=== PATIENT | male | born 1955 | race Caucasian/White ===

== ENCOUNTER 2017-04-08 12:33 | Day surgery (SDC) | payer BC ==
[~2017-04-08] VITALS: Ht 167.6 cm; Wt 85.0 kg
[~2017-04-08 12:33] MED LIST: CYCL5TAB PO; NAPR-260 PO
[2017-04-08 13:37] VITALS: Ht 167.6 cm; Wt 85.0 kg
[2017-04-08] MEDS ORDERED: AMLO1CAP15 PO (13:43)
[2017-04-08 14:17] VITALS: BP 147/87; PULSE 64; RESP 18
[2017-04-08] MEDS ORDERED: MIDAZOLAM 1 MG/ML 2 ML INJ ONE ×3 (15:04)
[2017-04-08] MEDS ORDERED: FENTAnyl 50 MCG/ML VIAL ONE (15:04)
--- NOTE | 2017-04-08 15:05 | OPPN ---
Date/Time of Note Date/Time of Note DATE: 04/08/17 TIME: 15:02 Proc Note GI Procedure Date 04/08/17 Pre-procedure Diagnosis * Colorectal cancer screening Post-procedure Diagnosis Impression: * Moderate universal diverticulosis * Moderate-sized internal hemorrhoids * Otherwise normal colonoscopy to cecum Plan: * Follow-up as previously scheduled * High-fiber diet * Annual Hemoccult stool testing * Screening colonoscopy in 10 years . Procedure Performed: Colonoscopy Surgeon RADHA CARTER MD Radio Station Engineer none Tourniquet Time none EBL none Transfusion required none Grafts/Implants none Tubes/Drains none Complication(s) none Pt Condition post procedure: stable Disposition: home Indications: screening/surveillance Procedure Description After informed consent, with the patient/relatives understanding the procedure, its indications and potential risks and complications, including but not limited to: Allergic reaction, bleeding, perforation, infection, and after all pertinent questions were answered to the patient's satisfaction, the patient/ relatives signed the witnessed informed consent. Following this, premedication was administered slowly IV push under careful cardiovascular and respiratory monitoring with pulse OXIMETRY, automatic blood pressure, and air sampling and monitoring. Once the sedative effect was achieved, the patient was placed in the left lateral decubitus position, digital rectal examination was performed. The colonoscope was then introduced and advanced under visual control throughout all segments of the colon including: the rectum, sigmoid, descending colon, splenic flexure, transverse colon, hepatic flexure, ascending colon and finally reaching the cecum which was clearly identified by transillumination, finger indentation and the ileocecal valve. Careful examination of the mucosa of the lower gastrointestinal tract both on insertion as well as withdrawal of the instrument disclosed the following findings: PREPARATION QUALITY: [Adequate], RECTAL EXAM: The anorectal area was visualized examined and digital rectal examination performed with the following findings: No evidence of perirectal disease, no masses. COLONIC MUCOSA: The mucosa of all segments of the colon was carefully examined and showed the following findings: There is moderate diverticulosis throughout the colon. Otherwise the examined mucosa appears within normal limits. There is no evidence of inflammatory changes, polyps or other neoplasms, vascular malformation, or any other abnormality. The instrument was then withdrawn, the patient tolerated the procedure well and was transferred out of the Endoscopy Suite awake and in good condition to continue recovery under observation. Copies To: CC: RADHA CARTER MD, MORDO MD Apr 08, 2017 15:05
[2017-04-08 15:20] VITALS: BP 138/95; RESP 14
== END 2017-04-08 16:00 | disposition home or self-care (01) ==
LOC: GIL 12:33
PROVIDERS: ATTEND Internal Medicine Gastroenterology
DX: Z12.11 Encounter for screening for malignant neoplasm of colon (principal); K57.30 Diverticulosis of large intestine without perforation or abscess without bleeding; K64.8 Other hemorrhoids; I10 Essential (primary) hypertension
CPT/HCPCS: 45378; J2250; J3010; Z7610

== ENCOUNTER 2018-02-24 13:24 | Inpatient (IN) | END 2018-02-26 13:40 | disposition home or self-care (01) | DRG 229 ==

== ENCOUNTER 2018-12-07 16:14 | Emergency (ER) | payer SELFPAY ==
[~2018-12-07] VITALS: Wt 90.0 kg
[~2018-12-07 16:14] MED LIST changes: +AMLO-147 PO; +ASPI-817 PO; +ATOR-2 PO; +CARV12.579 PO; +CLOP75TA27 PO; -CYCL5TAB PO; +FINA5TAB4 PO; +LOSA100T15 PO; -NAPR-260 PO
[2018-12-07 16:20] VITALS: BP 154/67; PULSE 80; RESP 18
== END 2018-12-07 18:00 | disposition left against medical advice (07) ==
LOC: FTE 16:14
DX: Z53.21 Procedure and treatment not carried out due to patient leaving prior to being seen by health care provider (principal)